=== PATIENT | female | born 1985 | race Caucasian/White ===

== ENCOUNTER 2017-11-01 03:11 | Inpatient (IN) | payer BC ==
[2017-11-01 03:45] VITALS: BMI 30.7
[2017-11-01] MEDS ORDERED: Ondansetron HCl/PF 4 MG/2 ML Vial IVP PRN ×2 (04:00→16:30)
[2017-11-01] MEDS ORDERED: Butorphanol Tartrate 1 MG/ML VIAL SLOW IVP PRN (04:00)
[2017-11-01] MEDS ORDERED: Promethazine HCl 25 MG/ML VIAL IM PRN (04:00)
[2017-11-01] MEDS ORDERED: Lidocaine 1% (PF) 30 ML VIAL SC PRN (04:00)
[2017-11-01] MEDS ORDERED: Ibuprofen 800 MG TAB PO PRN (04:00)
[2017-11-01] MEDS ORDERED: HYDROcodone/Acetaminophen 5/325 mg Tablet PO PRN ×4 (04:00→16:30)
[2017-11-01] MEDS ORDERED: Penicillin G Potassium 5 MILL.UNITS in Sodium Chloride 0.9% 100 ML IVPB SCH (04:00)
--- NOTE | 2017-11-01 04:04 | PDOC.LDHP ---
Labor and Delivery H&P HPI: Patient of [facility]it[facility] Time: 0400 EGA 39 weeks 3 days... here for contractions States CTX every 6 minutes, no LOF, no VB. No issues Review of Systems: complete ROS completed and neg as per HPI Current gestational age (weeks): 39 (3 days) Due date: 11/05/17 Grav: 2 Para: 0 OB History Details: El AB X 1, D&C Current complications: none Abnormal US findings: No Past Medical History: None Current medications: pre-shanelle vitamins Previous surgical history: none (El AB) Allergies/Adverse Reactions: Allergies Allergy/AdvReac Type Severity Reaction Status Date / Time No Known Allergies Allergy Verified 11/01/17 03:46 Social history: none - Physical Exam Vital signs reviewed and normal: yes (134/82) General: NAD Heart: RRR FHT: category 1 Idamay contractions every: every 6 minutes - Vaginal Exam cm dilated: 4 (BOWI) Effacement: 90% Station: -1 - Assessment Latent labor, term, GBS positive - Plan Plan: admit to L&D, labor augmentation if indicated, GBS antibiotic prophylaxis , informed consent obtained, anesthesia consult for pain management, other (Dr Ham notified..awaitinh her confirmation. We will admit to [facility] for labor. )
[2017-11-01] MEDS: Lactated Ringer's 1,000 ML IV SCH ×2 (04:40→07:47)
[2017-11-01 04:49] LABS: Mean Corpuscular HGB CONC 35.5 g/dL (32.0-36.0); Mean Corpuscular Hemoglobin 32.5 pg (27.0-31.0); Mean Corpuscular Volume 91.6 fL (78.0-98.0); Mean Platelet Volume 6.3 fL (7.4-10.4); Platelet Count 283 thou/uL (130-400); RBC Distribution Width 11.7 % (11.5-14.5); Red Blood Cell (RBC) Count 3.68 mill/uL (4.20-5.40); White Blood Cell (WBC) Count 13.9 thou/uL (4.8-10.8)
[2017-11-01 05:39] LABS: HBSAg Index 0.17 S/CO (0-0.99); HIV (1/2) Antibody/Antigen Non-Reactive (NonReactive); Hep B Surf Ag Non-Reactive S/CO (NonReactive)
[2017-11-01 05:42] LABS: Syphilis Antibody Nonreactive (Nonreactive); Syphilis Antibody Index 0.05 S/CO (<1.00 Non-Reactive)
[2017-11-01] MEDS ORDERED: DISCONTINUE ALL PREVIOUS NARCOTICS FS SCH (07:00)
[2017-11-01] MEDS ORDERED: Bupivacaine 0.5% 20 ML, fentaNYL Citrate/PF 400 MCG in Sodium Chloride 0.9% 72 ML EPIDURAL SCH (07:00)
[2017-11-01] MEDS ORDERED: Fentanyl 100 MCG/2 ML VIAL ONE (07:36)
[2017-11-01] MEDS: Penicillin G 2.5 MILL.units 2.5 MILL.UNITS in Premix Bag 1 BAG IVPB SCH ×2 (08:35→12:45)
[2017-11-01] MEDS ORDERED: Naloxone HCl 0.4 mg/ml Vial IVP PRN ×2 (09:19)
[2017-11-01] MEDS ORDERED: ePHEDrine/0.9% NaCl/PF SYRINGE 50 mg/10 ml SLOW IVP PRN (09:19)
[2017-11-01] MEDS ORDERED: Lactated Ringer's 500 ML IV PRN (09:19)
[2017-11-01] MEDS ORDERED: Eucerin (Mineral Oil/Petrolatum,White) 30 gm Jar TOP PRN (09:19)
[2017-11-01] MEDS ORDERED: Communication Order-Pharmacy FS SCH (09:30)
[2017-11-01] MEDS ORDERED: fentaNYL Citrate/PF 400 MCG, Bupivacaine 0.5% 20 ML in Sodium Chloride 0.9% 72 ML EPIDURAL SCH (09:30)
[2017-11-01] MEDS ORDERED: NS w/ Oxytocin 10 units 500 ML ONE (10:47)
[2017-11-01] MEDS ORDERED: NS w/ Oxytocin 10 units 500 ML IVPB SCH (11:30)
[2017-11-01] MEDS: NS / Oxytocin 40 units/1000ml 1,000 ML IV PRN ×2 (14:05→15:10)
--- NOTE | 2017-11-01 14:09 | PDOC.OPDEL ---
OB Operative/Delivery Note Delivery Dr/Surgeon: Jit[facility] Assist: n/a Pre-Delivery Diagnosis: active labor Procedure/Post Delivery Dx: spontaneous vaginal delivery Weeks gestation: 39 Anesthesia: epidural - Findings A Sex: male - 1 min: 8 - 5 min: 9 - Additional Findings/Plan Placenta delivered: spontaneous Repaired Obstetrical Laceration: 1st degree (repaired with 2-0 vicryl for hemostasis) Estimated blood loss: normal, qbl pending Post delivery plan: routine recovery
[2017-11-01] MEDS ORDERED: Bisacodyl 10 MG SUPP PR PRN (16:30)
[2017-11-01] MEDS ORDERED: Lanolin Ointment 7 GM TUBE TOP PRN (16:30)
[2017-11-01] MEDS ORDERED: Milk Of Magnesia 30 ML UDCUP PO PRN (16:30)
[2017-11-01] MEDS ORDERED: diphenhydrAMINE 25 MG CAP PO PRN (16:30)
[2017-11-01] MEDS ORDERED: Preparation H HC 1% Cream 26 GM TUBE TOP PRN (16:30)
[2017-11-01] MEDS ORDERED: Adacel (T-DAP) 0.5 ML VIAL IM ONE (16:30)
[2017-11-01] MEDS ORDERED: NS / Oxytocin 40 units/1000ml 1,000 ML IV SCH (16:30)
[2017-11-01] MEDS ORDERED: Witch Hazel-Glycerin 1 EACH JAR TOP PRN (16:30)
[2017-11-01] MEDS ORDERED: Preparation H Ointment 28 GM TUBE PR PRN (16:30)
[2017-11-01] MEDS ORDERED: Benzocaine/Menthol 20-0.5% 60 ML CAN TOP PRN (16:30)
[2017-11-01] MEDS: Docusate Calcium (SURFAK) 240 MG CAP PO SCH (21:46)
[2017-11-01] MEDS: Ibuprofen 800 MG TAB PO SCH (21:46)
[2017-11-02] MEDS: Ibuprofen 800 MG TAB PO SCH ×3 (05:26→21:38)
[2017-11-02] MEDS: Ferrous Sulfate 325 MG TAB PO SCH ×3 (07:57→18:22)
[2017-11-02] MEDS: Prenatal Vitamin 1 TAB PO SCH (08:45)
[2017-11-02] MEDS: Docusate Calcium (SURFAK) 240 MG CAP PO SCH ×2 (08:46→21:38)
[2017-11-02] MEDS ORDERED: Measles/Mumps/Rubella 10 MCG/0.5 ML VIAL SC ONE (13:41)
--- NOTE | 2017-11-02 13:41 | PDOC.PP ---
Post Progress Note Post Day #: 1 PO intake tolerated: yes Flatus: yes Ambulation: yes Vital Signs (12 hours) Temp Pulse Resp BP 11/02/17 12:31 98.1 F 74 20 123/70 11/02/17 11:53 98.0 F 73 18 11/02/17 08:00 98.0 F 73 18 120/78 11/02/17 07:35 98.0 F 73 18 11/02/17 04:45 98.2 F 77 18 115/58 L Weight Weight 185 lb - Physical Examination General: NAD Cardiovascular: RRR Respiratory: non-labored breathing Abdominal: no distention, appropriately TTP Fundus firm & at: umb Skin: no rash Psychiatric: normal affect Result Diagrams: 11/01/17 04:33 Additional Labs: Post Labs Blood Type A POSITIVE 11/01/17 04:33 Hep Bs Antigen Non-Reactive S/CO (NonReactive) 11/01/17 04:33 (1) Term Code(s): Z34.80 - ENCOUNTER FOR SUPRVSN OF NORMAL , UNSP TRIMESTER Status: Acute - Assessment/Plan PPD1 s/p TSVD VSSAF Doing well , lochia wnl Rh pos RNI- MMR prior to DC Cont PP care.
[2017-11-03] MEDS: Ibuprofen 800 MG TAB PO SCH ×2 (05:17→14:12)
[2017-11-03 08:49] VITALS: BP 123/72; TEMP 98.2
[2017-11-03] MEDS: Prenatal Vitamin 1 TAB PO SCH (08:49)
[2017-11-03] MEDS: Ferrous Sulfate 325 MG TAB PO SCH (08:49)
[2017-11-03] MEDS: Docusate Calcium (SURFAK) 240 MG CAP PO SCH (08:49)
--- NOTE | 2017-11-03 09:46 | PDOC.PP ---
Post Progress Note Vital Signs (12 hours) Temp Pulse Resp BP 11/03/17 08:48 98.2 F 58 L 18 123/72 Weight Weight 185 lb Result Diagrams: 11/01/17 04:33 Additional Labs: Post Labs Blood Type A POSITIVE 11/01/17 04:33 Hep Bs Antigen Non-Reactive S/CO (NonReactive) 11/01/17 04:33 (1) Term Code(s): Z34.80 - ENCOUNTER FOR SUPRVSN OF NORMAL , UNSP TRIMESTER Status: Acute
== END 2017-11-03 17:45 | disposition home or self-care (01) | DRG 775 ==
LOC: L&D/OP 03:11 → L&D 04:13 → 3SW 16:49
PROVIDERS: ADMIT Student in an Organized Health Care Education/Training Program; ATTEND Student in an Organized Health Care Education/Training Program
PROC: 10E0XZZ Delivery of Products of Conception, External Approach (ICD-10-PCS; principal; 2017-11-01)
PROC: 0HQ9XZZ Repair Perineum Skin, External Approach (ICD-10-PCS; 2017-11-01)
DX: O99.824 Streptococcus B carrier state complicating childbirth (principal); Z3A.39 39 weeks gestation of pregnancy; Z37.0 Single live birth; O70.0 First degree perineal laceration during delivery
CPT/HCPCS: 36415; 51702; 85027; 86780; 86850; 86900; 86901; 87340; 87389; 90707; 99285; A4216; J0595; J2001; J2540; J3010; J3490; J7050

== ENCOUNTER 2021-01-01 13:54 | Outpatient (CLI) | payer BC ==
[2021-01-01 14:45] LABS: BHCG - Serum Negative (NEGATIVE); Pregs Control Background? CLEAR/WHITE (CLR/WHITE); Pregs Control Bar Appear? YES (CONTROL BAR)
[2021-01-01] MEDS ORDERED: Iopamidol 300 61% 50 ML VIAL FS ONE (16:19)
== END 2021-01-01 13:55 | disposition home or self-care (01) ==
LOC: RAD 13:54
PROVIDERS: ATTEND Student in an Organized Health Care Education/Training Program
DX: Z32.00 Encounter for pregnancy test, result unknown (principal); N97.9 Female infertility, unspecified
CPT/HCPCS: 58340; 74740; 84703